=== PATIENT | male | born 1960 | race Caucasian/White ===

== ENCOUNTER 2021-09-11 19:23 | Emergency (ER) | payer OTHER ==
[2021-09-11 20:05] VITALS: BP 144/83; PULSE 75; TEMP 98.3; BMI 29.5
[2021-09-11] MEDS ORDERED: METHOCARBAMOL 500 MG TABLET PO ONE (21:53)
[2021-09-11] MEDS ORDERED: LIDOCAINE 5% TOPICAL PATCH TP ONE (21:53)
[2021-09-11] MEDS ORDERED: ACETAMINOPHEN 500 MG TABLET (FP) PO ONE (21:53)
[2021-09-11] MEDS ORDERED: ACETAMINOPHEN 325 MG TABLET (FP) ONE ×2 (21:55→21:59)
[2021-09-11] MEDS ORDERED: LIDOCAINE 5% TOPICAL PATCH ONE (21:55)
[2021-09-11] MEDS ORDERED: METHOCARBAMOL 500 MG TABLET ONE ×2 (21:55→21:59)
[2021-09-11 21:57] LABS: PH,URINE 7.5 (5.0-8.0); URINE APPEARANCE CLEAR; URINE BILIRUBIN NEGATIVE (NEGATIVE); URINE COLOR YELLOW; URINE GLUCOSE (UA) NEGATIVE (NEGATIVE); URINE KETONE TRACE (NEGATIVE); URINE LEUK ESTERASE NEGATIVE (NEGATIVE); URINE NITRITE NEGATIVE (NEGATIVE); URINE PROTEIN NEGATIVE (NEGATIVE)
[2021-09-11] MEDS ORDERED: LIDOCAINE PATCH REMOVAL MC SCH (22:00)
== END 2021-09-12 00:27 | disposition home or self-care (01) ==
LOC: JER 19:23
DX: M54.50 Low back pain, unspecified (principal)
CPT/HCPCS: 74176-TC; 81003; 87086; 99285-25

== ENCOUNTER 2021-12-13 04:57 | Day surgery (SDC) | payer OTHER ==
[2021-12-10 16:34] VITALS: BMI 26.6
[2021-12-13 11:01] VITALS: TEMP 97.7
[2021-12-13 11:51] VITALS: BP 128/77; PULSE 66
== END 2021-12-13 12:01 | disposition home or self-care (01) ==
LOC: JASU-ENDO 04:57
PROVIDERS: ATTEND Internal Medicine Gastroenterology
PROC: 0DBH8ZX Excision of Cecum, Via Natural or Artificial Opening Endoscopic, Diagnostic (ICD-10-PCS; principal; 2021-12-13 10:30)
DX: D12.0 Benign neoplasm of cecum (principal); K64.8 Other hemorrhoids; K57.30 Diverticulosis of large intestine without perforation or abscess without bleeding
CPT/HCPCS: 88305-TC

== ENCOUNTER 2022-08-04 04:16 | Day surgery (SDC) | payer OTHER ==
[2022-08-01 12:33] VITALS: BMI 30.4
[2022-08-04] MEDS ORDERED: BUPIVACAINE HCL/PF 0.25% (2.5MG/ML) 10 ML VIAL ONE (09:26)
[2022-08-04] MEDS ORDERED: SCOPOLAMINE HYDROBROMIDE 1 PATCH PATCH.TD72 ONE (09:35)
[2022-08-04] MEDS ORDERED: ceFAZolin SODIUM 1 GM VIAL IVPB ONE (10:00)
[2022-08-04] MEDS ORDERED: DEXAMETHASONE SOD PHOSPHATE 4 MG/1 ML VIAL ONE (10:02)
[2022-08-04] MEDS ORDERED: ONDANSETRON 4 MG/2 ML VIAL ONE ×2 (10:02→13:10)
[2022-08-04] MEDS ORDERED: ceFAZolin SODIUM 1 GM VIAL ONE (10:02)
[2022-08-04] MEDS ORDERED: LIDOCAINE HCL/PF 2% SDV 5ML VIAL ONE (10:02)
[2022-08-04] MEDS ORDERED: GLYCOPYRROLATE 0.2 MG/1 ML VIAL ONE (10:02)
[2022-08-04] MEDS ORDERED: NEOSTIGMINE METHYLSULFATE 0.5 MG/1 ML - 10 ML MDV ONE (10:02)
[2022-08-04] MEDS ORDERED: BUPIVACAINE HCL/PF 0.25% (2.5MG/ML) 10 ML VIAL IJ ONE ×2 (10:23→10:45)
[2022-08-04] MEDS ORDERED: ACETAMINOPHEN INJECTION 100 ML IVPB ONE (11:40)
[2022-08-04] MEDS ORDERED: ONDANSETRON 4 MG/2 ML VIAL IVPUSH PRN (11:41)
[2022-08-04] MEDS ORDERED: oxyCODONE HCL 5 MG TABLET PO PRN ×2 (11:41)
[2022-08-04] MEDS ORDERED: PROMETHAZINE HCL 25 MG/1 ML VIAL IVPUSH PRN (11:41)
[2022-08-04] MEDS ORDERED: LACTATED RINGERS SOLUTION 1,000 ML IV SCH (11:45)
[2022-08-04] MEDS ORDERED: ACETAMINOPHEN 1000 MG/100 ML BAG IVPB ONE (12:53)
[2022-08-04 15:44] VITALS: BP 135/86; PULSE 83; RESP 18; TEMP 97.9
== END 2022-08-04 16:10 | disposition home or self-care (01) ==
LOC: JASU-SURG 04:16
PROVIDERS: ATTEND Surgery
PROC: 0WUF4JZ Supplement Abdominal Wall with Synthetic Substitute, Percutaneous Endoscopic Approach (ICD-10-PCS; principal; 2022-08-04 11:30)
DX: K43.9 Ventral hernia without obstruction or gangrene (principal)
CPT/HCPCS: 88302-TC; 94760